=== PATIENT | male | born 1970 | race African-American/Black ===

== ENCOUNTER 2019-02-24 02:49 | Emergency (ER) | payer OTHER ==
[~2019-02-24] VITALS: Ht 198.1 cm; Wt 147.4 kg
--- NOTE | 2019-02-24 03:05 | NUR ---
MD AT BEDSIDE FOR HX AND PHYSICAL
[2019-02-24] MEDS ORDERED: COLCHICINE 0.6 MG TABLET ONE (03:11)
[2019-02-24] MEDS ORDERED: COLCHICINE 0.6 MG TABLET PO ONE (03:15)
--- NOTE | 2019-02-24 03:15 | NUR ---
ABLE TO TOLERATE PO MEDS ORDERED
--- NOTE | 2019-02-24 03:15 | NUR ---
Patient discharged to home in stable conditon. Written and verbal after care instructions given. Patient verbalizes understanding of instructions. AMBULATORY W/ STABLE GAIT ALL BELONGINGS W/ PT
[2019-02-24 03:17] VITALS: BP 165/97
== END 2019-02-24 03:18 | disposition home or self-care (01) ==
LOC: ER 02:51
DX: M10.9 Gout, unspecified (principal); E11.9 Type 2 diabetes mellitus without complications
CPT/HCPCS: A4663